=== PATIENT | female | born 1940 | race Caucasian/White ===

== ENCOUNTER → 2016-08-25 | Outpatient (CLI) | payer MEDICARE ==
[~2016-08-25] MED LIST: ACET-1770 PO; ASPI-557 PO; CALC600T12 PO; CARV3.123 PO; CHOL100055 PO; DENO60DI IM; GLUC100015 PO; MULT-806 PO; NITR0.4T39 PO
== END ==
LOC: WC.BC 12:47
DX: Z12.31 Encounter for screening mammogram for malignant neoplasm of breast (principal); N64.59 Other signs and symptoms in breast; C50.911 Malignant neoplasm of unspecified site of right female breast; Z90.11 Acquired absence of right breast and nipple
CPT/HCPCS: 77063; G0202

== ENCOUNTER 2017-05-26 17:39 | Inpatient (IN) ==
--- OUTSIDE RECORDS SUMMARY | 2017-05-26 18:47 | External Medical Summary | Referral Summary ---
:1939 Author Organization [facility] Address [address] [place] [address] [place] [phone] Care Team Providers Name Role Phone Ganesh Arrieta Primary Care Physician Encounter VC Date(s): 06/09/15 - 06/09/15 [facility] [address] [place] [address] [place] [phone] [place] Discharge Disposition: 01-Home or Self Care Attending Physician: Ganesh Arrieta MD Admitting Physician: Ganesh Arrieta MD Vital Signs Most recent to oldest [Reference Range]: 1 Temperature Tympanic [36.6-38.1 degC] 36.0 degC *LOW* (06/09/15 2:33 PM) Peripheral Pulse Rate [60-100 bpm] 76 bpm (06/09/15 2:33 PM) Blood Pressure [90-140/60-90 mmHg] 118/76 mmHg (06/09/15 2:33 PM) Problem List Condition Effective Dates Status Health Status Informant Dyslipidemia(Confirmed) Active Eczema(Confirmed) Active History of adenomatous polyp of Active colon(Confirmed) Dyspepsia,lactose Active intolerance(Confirmed) Head trauma(Confirmed) < 05/02/14 Resolved Breast cancer-rt(Confirmed) 04/24/95 - 05/02/14 Resolved Osteoarthritis(Confirmed) Active Rosacea(Confirmed) Active Allergies, Adverse Reactions, Alerts No Known Medication Allergies Medications Aspirin Enteric Coated 81 mg, Oral, q2Days, 0 Refill(s) Start Date: 05/07/14 Status: OrderedCalcium 600+D 1 tabs, Oral, Daily, 0 Refill(s) Start Date: 05/07/14 Status: OrderedCoreg 3.125 mg, Oral, BID, 0 Refill(s) Start Date: 01/20/15 Status: Ordereddenosumab 60 mg/mL subcutaneous solution 60 mg, SubCutaneous, q6mo, # 1 mL, 0 Refill(s), other reason (Rx) Start Date: 06/11/14 Stop Date: 06/22/15 Status: Orderedglucosamine 500 mg, Oral, Daily, 0 Refill(s) Start Date: 05/07/14 Status: Orderedmultivitamin See Instructions, 1 tab po Daily, 0 Refill(s) Start Date: 05/02/14 Status: OrderedNitrostat 0.4 mg sublingual tablet 0.4 mg 1 tabs, SubLingual, q5min, as needed for chest pain, # 100 tabs, 0 Refill (s) Start Date: 01/20/15 Status: Orderedtriamcinolone 0.1% topical cream 1 shaneka, Topical, TID, # 60 g, 0 Refill(s), Pharmacy: [id number] Start Date: 05/07/14 Status: OrderedVitamin D3 1,000 Intl_Units, Daily, 0 Refill(s) Start Date: 05/02/14 Status: Ordered Results No data available for this section Immunizations Vaccine Date Refusal Reason pneumococcal 23-polyvalent vaccine 09/30/08 zoster vaccine live 04/24/07 Procedures Procedure Date Related Diagnosis Body Site Colonoscopy normal1 07/17/14 Colonoscopy2 2014 Cystoscopy 2013 Knee replacement-left 05/16/11 Mammogram3 06/17/08 Benign Colon polyp4 08/07/07 Radical mastectomy-rt5 1966 Appendectomy section History of right oophorectomy 1Diverticula, History of adenomatous polyps, no polyps found in current colonoscopy, repeat in 5 bbusp5LaIvania Loera, polyp showing qrvflggoc3Wd. Diagnostic unitateral-DX: personal Hx of breast ca- Mastectomy- 1 year screening [id number]., Dr. LoeraUpcykwfb1tdrub Social History Social History Type Response Smoking Status Never smoker Assessment and Plan Extracted from: Title: 3rd Prolia inj Author: Kate Mcginnis RN Date: 06/09/15 Pt here for 3rd Prolia injection - denies any SE from previous ones. Prior auth # karol Elias at [facility] is [id number] effective until 2016. Lot # [id number] Exp 11/2017.
--- OUTSIDE RECORDS SUMMARY | 2017-05-26 18:47 | External Medical Summary | Referral Summary ---
:1939 Author Organization [facility] Address [address] [place] [address] [place] [phone] Care Team Providers Name Role Phone Ganesh Arrieta Primary Care Physician Encounter VC Date(s): 12/10/14 - 12/10/14 [facility] [address] [place] [address] [place] [phone] [place] Discharge Diagnosis: SENILE OSTEOPOROSIS Discharge Disposition: 01-Home or Self Care Attending Physician: Buzz Mccray JR, MD, FAAFP Admitting Physician: Buzz Mccray JR, MD, FAAFP Vital Signs Most recent to oldest [Reference Range]: 1 Temperature Tympanic [36.6-38.1 degC] 36.9 degC (12/10/14 9:08 AM) Peripheral Pulse Rate [60-100 bpm] 64 bpm (12/10/14 9:08 AM) Respiratory Rate [14-20 br/min] 16 br/min (12/10/14 9:08 AM) Blood Pressure [90-140/60-90 mmHg] 114/64 mmHg (12/10/14 9:08 AM) Problem List Condition Effective Dates Status Health [...] TID, # 60 g, 0 Refill(s), Pharmacy: [id number] Start Date: 05/07/14 Status: OrderedVitamin D3 1,000 [...] found in current colonoscopy, repeat in 5 touxa2MaIvania Loera, polyp showing knlxzknas1Yu. Diagnostic unitateral-DX: personal Hx of breast ca- Mastectomy- 1 year screening jbzocykzekj8tmcqre.Dr. Loera5right Social History Social History Type Response Smoking Status Never smoker Assessment and Plan No data available for this section
--- OUTSIDE RECORDS SUMMARY | 2017-05-26 18:47 | External Medical Summary | Referral Summary ---
:1939 Author Organization [facility] Address [address] [place] [address] [place] [phone] Care Team Providers Name Role Phone Ganesh Arrieta Primary Care Physician Encounter VC Date(s): 12/10/14 - 12/10/14 [facility] [address] [place] [address] [place] [phone] [place] Discharge Diagnosis: SENILE [...] TID, # 60 g, 0 Refill(s), Pharmacy: [id number] Start Date: 05/07/14 Status: OrderedVitamin D3 1,000 [...] found in current colonoscopy, repeat in 5 czcrs1JxIvania Loera, polyp showing ylxkozbps9Us. Diagnostic unitateral-DX: personal Hx of breast ca- Mastectomy- 1 year screening gwrjlyxppjz8lbvrga.Dr. Loera5right Social History Social History Type Response Smoking Status Never smoker Assessment and Plan No data available for this section
--- OUTSIDE RECORDS SUMMARY | 2017-05-26 18:47 | External Medical Summary | Referral Summary ---
:1939 Author Organization [facility] [place] [phone] Care Team Providers Name Role Phone Ganesh Arrieta Primary Care Physician Encounter VC Date(s): 01/20/15 - 01/20/15 [facility] [place] [phone] [place] Discharge Diagnosis: Strain of left trapezius muscle Discharge Diagnosis: Effort angina Discharge Diagnosis: Osteoarthritis Discharge Disposition: 01-Home or Self Care Attending Physician: Esthela George APRN Admitting Physician: Esthela George APRN Vital Signs Most recent to oldest [Reference Range]: 1 Temperature Tympanic [36.6-38.1 degC] 35.7 degC *LOW* (01/20/15 8:19 AM) Peripheral Pulse Rate [60-100 bpm] 72 bpm (01/20/15 8:19 AM) Blood Pressure [90-140/60-90 mmHg] 102/64 mmHg (01/20/15 8:19 AM) Problem List Condition Effective Dates Status [...] TID, # 60 g, 0 Refill(s), Pharmacy: [facility] Start Date: 05/07/14 Status: OrderedVitamin D3 1,000 [...] found in current colonoscopy, repeat in 5 vhpbz6RrIvania Loera, polyp showing vvnqagoar7Me. Diagnostic unitateral-DX: personal Hx of breast ca- Mastectomy- 1 year screening ftkyhxpgoke7arnmbk., Dr. LoeraNutlkvbm1iiavv Social History Social History Type Response Smoking Status Never smoker Assessment and Plan Extracted from: Title: Office Visit Note-Hosp f/u Author: Esthela George RAIL DIRECTOR Date: angina Assessment/Plan 1.Effort angina Refer to Dr. Da Silva per pt request. Avoid inc physical activity. If has recurrent angina takie nitroglycerin and call EMS. Discussed current lipid panel from [facility]. LDL is 112. Discussed current recommendations regarding cardiovascular disease and treatment goals. Discussed starting a statin. Mimi nt would like to wait till she sees cardiology as she wants to avoid medications as much as normal. Is concerned about over medicated. Continue baby aspirin 3-4 times a week. PCP changed to Dr. Arrieta. Ordered: Office Visit Level 4 Est 56577 2.Strain of left trapezius muscle Discussed her neck and shoulder pain. I suspect is more muscular in nature. Possibly talked about adhesive capsulitisI think that is less likelythereal ly good range of motion of the shoulder today. [facility]. Ordered: Office Visit Level 4 Est 86894 Osteoarthritis Tylenol as needed. This is the bestmedication for her pain, avoid nonsteroidals with this time. Ordered: Office Visit Level 4 Est [id number]
--- OUTSIDE RECORDS SUMMARY | 2017-05-26 18:47 | External Medical Summary | Referral Summary ---
:1939 Author Organization [facility] Address [address] [place] [address] [place] [phone] Care Team Providers Name Role Phone Ganesh Arrieta Primary Care Physician Encounter VC Date(s): 12/17/15 - 12/17/15 [facility] [address] [place] [address] [place] [phone] [place] Discharge Disposition: 01-Home or Self Care Attending Physician: Ganesh Arrieta MD Admitting Physician: Ganesh Arrieta MD Vital Signs Most recent to oldest [Reference Range]: 1 Temperature Tympanic [36.6-38.1 degC] 36.2 degC *LOW* (12/17/15 8:59 AM) Peripheral Pulse Rate [60-100 bpm] 52 bpm *LOW* (12/17/15 8:59 AM) Blood Pressure [90-140/60-90 mmHg] 102/70 mmHg (12/17/15 8:59 AM) Problem List Condition Effective Dates Status [...] Refill(s) Start Date: 05/07/14 Status: OrderedCoreg 3.125 mg oral tablet 3.125 mg, Oral, BID, # 60 tabs, 3 Refill(s), Pharmacy: [facility], 3.125 mg Oral BID Start Date: 08/20/15 Status: Ordereddenosumab 60 mg/mL subcutaneous solution 60 [...] TID, # 60 g, 0 Refill(s), Pharmacy: [facility] Start Date: 05/07/14 Status: OrderedVitamin D3 1,000 [...] found in current colonoscopy, repeat in 5 yehxo1DbIvania Loera, polyp showing qfteohlle1Mf. Diagnostic unitateral-DX: personal Hx of breast ca- Mastectomy- 1 year screening ghflinmzibs3uhqveu., Dr. LoeraJhgbbqoi3zpwza Social History Social History Type Response Smoking Status Never smoker Assessment and Plan Extracted from: Title: 4th Prolia Author: Evelyne Chase RN Date: 12/17/15 Pt here for 4th Prolia injection. 12/16/2015 Calcium 9.6, estimated creatinine clearance 50. No adverse effects reported by patient. Prolia 60 mg given sc left upper thigh. Lot # [id number], exp 03/2018. Currently on calcium and vitamin D, instructed to continue that. Will schedule bone density test early May, will give Prolia depending on results.
--- OUTSIDE RECORDS SUMMARY | 2017-05-26 18:47 | External Medical Summary | Referral Summary ---
:1939 Author Organization [facility] Address [address] [place] [address] [place] [phone] Care Team Providers Name Role Phone Ganesh Arrieta Primary Care Physician Encounter VC Date(s): 07/22/15 - 07/22/15 [facility] [place] [phone] [place] Discharge Diagnosis: Acute UTI Discharge Disposition: 01-Home or Self Care Attending Physician: Esthela George APRN Admitting Physician: Esthela George APRN Vital Signs Most recent to oldest [Reference Range]: 1 Temperature Tympanic [36.6-38.1 degC] 36.7 degC (07/22/15 10:48 AM) Peripheral Pulse Rate [60-100 bpm] 64 bpm (07/22/15 10:48 AM) Respiratory Rate [14-20 br/min] 18 br/min (07/22/15 10:48 AM) Blood Pressure [90-140/60-90 mmHg] 122/66 mmHg (07/22/15 10:48 AM) Problem List Condition Effective Dates Status [...] Daily, 0 Refill(s) Start Date: 05/07/14 Status: OrderedCipro 500 mg oral tablet 500 mg 1 tabs, Oral, q12hr, X 7 days, # 14 tabs, 0 Refill(s), Pharmacy: [facility], 1 tabs Oral q12hr,x7 days Start Date: 07/22/15 Stop Date: 07/29/15 Status: OrderedCoreg 3.125 mg, Oral, BID, 0 [...] TID, # 60 g, 0 Refill(s), Pharmacy: [facility]28 Start Date: 05/07/14 Status: OrderedVitamin D3 1,000 Intl_Units, Daily, 0 Refill(s) Start Date: 05/02/14 Status: Ordered Results Urinalysis Most recent to oldest [Reference Range]: 1 UA Color Yellow (07/22/15 10:26 AM) UA Appear Cloudy *ABN* (07/22/15 10:26 AM) UA pH [5.0-8.0] 6.0 (07/22/15 10:26 AM) UA Leuk Est [Negative] Pos 1+ *ABN* (07/22/15 10:26 AM) UA Nitrite [Negative] Negative (07/22/15 10:26 AM) UA Protein [Negative] Negative (07/22/15 10:26 AM) UA Glucose [Negative] Negative (07/22/15 10:26 AM) UA Ketones [Negative] Negative (3/30/16 10:26 AM) UA Urobilinogen [<=1.0 mg/dL] 0.2 mg/dL (07/22/15 10:26 AM) UA Bili [Negative] Negative (07/22/15 10:26 AM) UA Blood [Negative] Pos 2+ *ABN* (07/22/15 10:26 AM) UA Spec Grav [1.003-1.030] 1.015 (07/22/15 10:26 AM) Type Clean Catch (07/22/15 10:26 AM) UA WBC [0-4 /HPF] >50 /HPF 1 *ABN* (07/22/15 10:26 AM) UA RBC [0-2] 10-20 *ABN* (07/22/15 10:26 AM) Epithelial Cells 2-5 (07/22/15 10:26 AM) UA Bacteria Occasional *ABN* (07/22/15 10:26 AM) 1Result Comment: WBC clumps noted Immunizations Vaccine Date Refusal Reason pneumococcal 23-polyvalent vaccine 09/30/08 zoster vaccine live 04/24/07 Procedures Procedure Date Related Diagnosis Body Site Colonoscopy normal1 07/17/14 Colonoscopy2 2014 Cystoscopy 2013 Knee replacement-left 05/16/11 Mammogram3 06/17/08 Benign Colon polyp4 08/07/07 Radical mastectomy-rt5 1966 Appendectomy section History of right oophorectomy 1Diverticula, History of adenomatous polyps, no polyps found in current colonoscopy, repeat in 5 ytqbi5OaIvania Loera, polyp showing jnlkrwwzd2Vn. Diagnostic unitateral-DX: personal Hx of breast ca- Mastectomy- 1 year screening plxxhlmdtnk8venjgs., Dr. LoeraExooanaq4zeetx Social History Social History Type Response Smoking Status Never smoker Assessment and Plan Extracted from: Title: Office Visit Note-UTI Author: Esthela George FOOD AND BEVERAGE MANAGER Date: 07/22/15 Assessment/Plan 1.Acute UTI Discussed pathophysiology and expected results with treatment. Take antibiotic till complete. Side effects discussed. Push fluids. OTC AZO per package instructions for discomfort. UA reviewed. Await culture. We'll notify patient if antibiotic is not sensitive and different antibiotic is needed. Call if sx not improving after 48 hr of antibiotic. Ordered: Office Visit Level 3 Est [id number] Orders: ciprofloxacin, 500 mg 1 tabs, Oral, q12hr, X 7 days, # 14 tabs, 0 Refill(s), Pharmacy: [facility], 1 tabs Oral q12hr,x7 days
--- OUTSIDE RECORDS SUMMARY | 2017-05-26 18:47 | External Medical Summary | Referral Summary ---
:1939 Author Organization [facility] Address [address] [place] [address] [place] [phone] Care Team Providers Name Role Phone Ganesh Arrieta Primary Care Physician Encounter VC Date(s): 12/10/14 - 12/10/14 [facility] [address] [place] [address] [place] [phone] [place] Discharge Diagnosis: SENILE [...] TID, # 60 g, 0 Refill(s), Pharmacy: [facility] Start Date: 05/07/14 Status: OrderedVitamin D3 1,000 [...] found in current colonoscopy, repeat in 5 xkrqd2YaIvania Loera, polyp showing yhuwhaovr7Fw. Diagnostic unitateral-DX: personal Hx of breast ca- Mastectomy- 1 year screening mvdjyvanhiv7qtdvkt.Dr. Loera5right Social History Social History Type Response Smoking Status Never smoker Assessment and Plan No data available for this section
--- OUTSIDE RECORDS SUMMARY | 2017-05-26 18:47 | External Medical Summary | Referral Summary ---
:1939 Author Organization [facility] Address [address] [place] [address] [place] [phone] Care Team Providers Name Role Phone Ganesh Arrieta Primary Care Physician Encounter VC Date(s): 12/10/14 - 12/10/14 [facility] [address] [place] [address] [place] [phone] [place] Discharge Diagnosis: SENILE [...] # 60 g, 0 Refill(s), Pharmacy: [facility] Start Date: 05/07/14 Status: OrderedVitamin D3 1,000 [...] found in current colonoscopy, repeat in 5 weglj5HbIvania Loera, polyp showing hcixcpjer4Sw. Diagnostic unitateral-DX: personal Hx of breast ca- Mastectomy- 1 year screening ixhxpjzoaym4wkctrv.Dr. Loera5right Social History Social History Type Response Smoking Status Never smoker Assessment and Plan No data available for this section
--- OUTSIDE RECORDS SUMMARY | 2017-05-26 18:47 | External Medical Summary | Referral Summary ---
:1939 Author Organization [facility] Address [address] [place] [address] [place] [phone] Care Team Providers Name Role Phone Ganesh Arrieta Primary Care Physician Encounter VC Date(s): 12/10/14 - 12/10/14 [facility] [address] [place] [address] [place] [phone] [place] Discharge Diagnosis: SENILE [...] TID, # 60 g, 0 Refill(s), Pharmacy: [facility] Start Date: 05/07/14 Status: OrderedVitamin D3 1,000 [...] found in current colonoscopy, repeat in 5 tnqog8UyIvania Loera, polyp showing tjtuhtiky8Ld. Diagnostic unitateral-DX: personal Hx of breast ca- Mastectomy- 1 year screening uloobhahkqp9hkxjuj.Dr. Loera5right Social History Social History Type Response Smoking Status Never smoker Assessment and Plan No data available for this section
--- OUTSIDE RECORDS SUMMARY | 2017-05-26 18:48 | External Medical Summary | Referral Summary ---
:1939 Author Organization [facility] [place] [phone] Care Team Providers Name Role Phone Ganesh Arrieta Primary Care Physician Encounter VC Date(s): 01/20/15 - 01/20/15 [facility] [place] [phone] [place] Discharge Diagnosis: [...] TID, # 60 g, 0 Refill(s), Pharmacy: [facility] Start Date: 05/07/14 Status: OrderedVitamin D3 1,000 [...] found in current colonoscopy, repeat in 5 enwwk5XrIvania Loera, polyp showing qmzpofphw6Uc. Diagnostic unitateral-DX: personal Hx of breast ca- Mastectomy- 1 year screening ffhrmtfgkqx7lvxwxj., Dr. LoeraYdbtfynl7lmnit Social History Social History Type Response Smoking Status Never smoker Assessment and Plan Extracted from: Title: Office Visit Note-Hosp f/u Author: Esthela George BALING MACHINE OPERATOR Date: angina Assessment/Plan 1.Effort angina Refer to Dr. Da Silva per pt request. Avoid inc physical activity. If has recurrent angina takie nitroglycerin and call EMS. Discussed current lipid panel from [facility]. LDL is 112. Discussed current recommendations regarding cardiovascular disease and treatment goals. Discussed starting a statin. Mimi nt would like to wait till she sees cardiology as she wants to avoid medications as much as normal. Is concerned about over medicated. Continue baby aspirin 3-4 times a week. PCP changed to Dr. Arrieta. Ordered: Office Visit Level 4 Est 86417 2.Strain of left trapezius muscle Discussed her neck and shoulder pain. I suspect is more muscular in nature. Possibly talked about adhesive capsulitisI think that is less likelythereal ly good range of motion of the shoulder today. [facility]. Ordered: Office Visit Level 4 Est 13023 Osteoarthritis Tylenol as needed. This is the bestmedication for her pain, avoid nonsteroidals with this time. Ordered: Office Visit Level 4 Est 11335
--- OUTSIDE RECORDS SUMMARY | 2017-05-26 18:48 | External Medical Summary | Continuity of Care Document ---
:[address] [facility] [place] [facility] [place] Allergies Active Description Code Type Severity Reaction Onset Reported/ Identified Relationship Clinical to Patient Status Yes No Known No Drug Unknown N/A 04/23/2015 Allergies Known Aller Aller gy gies Medications There is no data. Problems There is no data. Procedures There is no data. Results Test Result Range BLOOD UREA NITROGEN - 04/23/15 08:45 BLOOD UREA NITROGEN 13 mg/dL 7-20 CREATININE - 04/23/15 08:45 EST GFR (MDRD) > 60 mL/min > 59 CREATININE 0.8 mg/dL 0.6-1.0 Encounters ACCT Visit Discharge Status Pt. Type Provider Facility Loc./Unit Complaint No. Date/Time [id number] 04/23/2015 04/23/2015 DIS Outpatient Marilu BANUELOS [id number] 08:04:00 10:23:00 , [facility]
--- OUTSIDE RECORDS SUMMARY | 2017-05-26 18:48 | External Medical Summary | Referral Summary ---
:1939 Author Organization [facility] Address [address] [place] [address] [place] [phone] Care Team Providers Name Role Phone Ganesh Arrieta Primary Care Physician Encounter VC Date(s): 12/10/14 - 12/10/14 [facility] [address] [place] [address] [place] [phone] [place] Discharge Diagnosis: SENILE [...] TID, # 60 g, 0 Refill(s), Pharmacy: [facility] Start Date: 05/07/14 Status: OrderedVitamin D3 1,000 [...] found in current colonoscopy, repeat in 5 nsafx8NpIvania Loera, polyp showing vksyhmpxj2Ts. Diagnostic unitateral-DX: personal Hx of breast ca- Mastectomy- 1 year screening dpkmaadmlex6msbqyj.Dr. Loera5right Social History Social History Type Response Smoking Status Never smoker Assessment and Plan No data available for this section
--- NOTE | 2017-05-26 20:09 | History & Physical Report ---
History of Present Illness Date: 05/26/17 Chief complaint: weakness HPI: 77 yo who had a black stool Monday (05/24) afternoon and again morning. She saw Dr. Arrieta in the office. Her Hgb was 12.3. The plan was to recheck CBC today and pursue an outpatient workup as long as bleeding didn't get worse. She had another black stool today. She says she was soa and felt weak yesterday more than today. Today's Hgb was 9.8, and a direct admit was arranged. Patient recalls 4-5 days of heartburn about 2 weeks ago. She says she does not typically have heartburn. She takes 81 mg of ASA daily and does not take NSAIDs. She has had some lightheadedness in the past 2 days. Review of Systems Review of systems: In addition to above, 10-point ROS is negative except for below: - Cardiovascular Cardiovascular: Present: palpitations Past Medical History Patient Stated Medical History Angina Yes Blood Transfusions Yes: 2 units with TKA dyslipidemia eczema dyspepsia osteoarthritis breast cancer- right rosacea Surgical History: colonoscopy, cystoscopy, knee replacement, appendectomy, radical mastectomy, , oopherectomy Family History: father: COPD, HTN mother: HTN, stroke sibling: sarcoma Family History Updates: ather: COPD, HTN. mother: HTN, stroke. sibling: sarcoma - Social History Smoking status: Never smoker Medications Home Medications Medication Instructions Recorded Confirmed Type Multivitamins (Multivitamin) 1 tab PO DAILY #0 05/13/11 05/26/17 History Denosumab [Prolia] 1 syringe IM 6 MONTHS #0 07/17/14 05/26/17 History Acetaminophen/Diphenhydramine 1 tab PO HS PRN #0 03/05/16 05/26/17 History [Acetaminophen Pm Caplet] Aspirin [Aspir 81] 81 mg PO DAILY #0 03/05/16 05/26/17 History Calcium Carbonate [Calcium] 600 mg PO BID #0 03/05/16 05/26/17 History Carvedilol 3.125 mg PO BIDWM #0 03/05/16 05/26/17 History Cholecalciferol (Vitamin D3) 1,000 unit PO DAILY #0 03/05/16 05/26/17 History (Vitamin D) Glucosamine Sulfate Dipot Chlr 1,000 mg PO BID #0 03/05/16 05/26/17 History [Glucosamine] Nitroglycerin 0.4 mg PO Q5MIN PRN #0 03/05/16 05/26/17 History Atorvastatin [Lipitor] 1 tab PO HS 05/26/17 05/26/17 History Allergies Allergy/AdvReac Type Severity Reaction Status Date / Time alendronate sodium AdvReac Intermediate Lumps on Verified 05/26/17 20:05 elbows, knees, heels Exam Vital Signs: Temperature 97.1 F 05/26/17 19:04 Pulse Rate 91 05/26/17 19:04 Respiratory Rate 18 05/26/17 19:04 Blood Pressure 137/84 05/26/17 19:04 Pulse Oximetry 96 05/26/17 19:04 Height/Weight/BMI: Height 5 ft 2 in Weight 52 kg Body Mass Index 20.9 - Constitutional Present: no acute distress - Routine HEENT Exam Head: Present: normocephalic, atraumatic Eye: Present: EOMI, PERRL ENT: Present: mucous membranes moist - Routine Neck Exam Present: supple - Routine Respiratory Exam Present: CTA bilaterally - Routine Cardiovascular Exam Present: RRR, no murmur - Routine Abdominal Exam Present: soft, normoactive bowel sounds, non distended, non tender - Routine Extremities Exam Present: no edema - Routine Skin Exam Present: intact - Routine Neurological Exam Present: alert, oriented X3, CN II-XII intact, moving all extremities - Routine Psychiatric Exam Present: normal affect, cooperative Assessment and Plan Assessment and Plan: Assessment UGI bleed acute blood loss anemia HTN dyslipidemia angina Plan Inpatient admission. Protonix drip started. Monitor hgb. With h/o angina, will transfuse [address] Davis consulted. EGD planned for AM. Hold ASA. NPO after MN. SCDs for DVT ppx DVT Prophylaxis: SCD's GI Prophylaxis: Protonix Resuscitation Status: Full Code - Physician Narrative Narrative: Date: 05/26/17 Time: 1956 Hospital Course Summary Disclaimer: The visit summary below is not to be considered part of the above Progress Note. Hospital Course: UGI bleed acute blood loss anemia HTN dyslipidemia angina Plan Inpatient admission. Protonix drip started. Monitor hgb. With h/o angina, will transfuse [address] Davis consulted. EGD planned for AM. Hold ASA. NPO after MN. SCDs for DVT ppx
[2017-05-26] MEDS ORDERED: NS FLUSH BAG 500ml IV PRN (20:25)
[2017-05-26] MEDS: PANTOPRAZOLE IV 80 MG in NS 250ml 250 ML IV SCH (23:54)
[2017-05-27] MEDS: PANTOPRAZOLE IV 80 MG in NS 250ml 250 ML IV SCH ×4 (08:22→21:18)
--- NOTE | 2017-05-27 09:25 | Anesthesia Preoperative Report ---
Anesthesia Preoperative Record - Date and Time Date: 05/27/17 Preoperative Diagnosis: GI Bleed Proposed Procedure: EGD NPO Since Date: 05/27/17 NPO Since Time: 00:00 Allergies/Adverse Reactions: Allergies Allergy/AdvReac Type Severity Reaction Status Date / Time alendronate sodium AdvReac Intermediate Lumps on Verified 05/26/17 20:05 elbows, knees, heels - Vital Signs Vital Signs: Temperature 98 F 05/27/17 07:56 Pulse Rate 64 05/27/17 07:56 Respiratory Rate 14 05/27/17 07:56 Blood Pressure 117/71 05/27/17 07:56 Pulse Oximetry 96 05/27/17 07:56 Height and Weight: Height 5 ft 2 in Weight 52.9 kg Body Mass Index 20.9 - Medications Inpatient Medications: Current Medications Pantoprazole Sodium 80 mg/ (Sodium Chloride) 250 mls @ 25 mls/hr IV .Q10H ABEBA PRN Reason: 8 MG/HR Last Admin: 05/27/17 08:22 Dose: Not Given Sodium Chloride (Normal Saline) 500 ml IV PRN PRN Last Admin: 05/26/17 22:20 Dose: 500 ml Home Medications: Home Medications Medication Instructions Recorded Confirmed Type Multivitamins (Multivitamin) 1 tab PO DAILY #0 05/13/11 05/26/17 History Denosumab [Prolia] 1 syringe IM 6 MONTHS #0 07/17/14 05/26/17 History Acetaminophen/Diphenhydramine 1 tab PO HS PRN #0 03/05/16 05/26/17 History [Acetaminophen Pm Caplet] Aspirin [Aspir 81] 81 mg PO DAILY #0 03/05/16 05/26/17 History Calcium Carbonate [Calcium] 600 mg PO BID #0 03/05/16 05/26/17 History Carvedilol 3.125 mg PO BIDWM #0 03/05/16 05/26/17 History Cholecalciferol (Vitamin D3) 1,000 unit PO DAILY #0 03/05/16 05/26/17 History (Vitamin D) Glucosamine Sulfate Dipot Chlr 1,000 mg PO BID #0 03/05/16 05/26/17 History [Glucosamine] Nitroglycerin 0.4 mg PO Q5MIN PRN #0 03/05/16 05/26/17 History Atorvastatin [Lipitor] 1 tab PO HS 05/26/17 05/26/17 History Is Patient on Beta Kirk?: Yes Beta Kirk Last Dose Date/Time: 05/26/17 0800 - Medical History Respiratory: DENIES: Asthma, Bronchitis, Chronic Obstructive Pulmonary Disease (COPD), Dyspnea, Orthopnea, Pulmonary Embolism, Pneumonia, Upper Respiratory Infection, Pulmonary Edema, Sleep Apnea, Tuberculosis, Other Cardiovascular: Reports: Angina (2015 negative workup. none since being on coreg ), Valvular Heart Disease ("mildly leaky valve" not sure which one) Gastrointestional: Reports: Gastrointestinal Bleeding (possible now) Neuro/Musculoskeletal: Denies: HX.MS.OSAR, Back Problems, Cerebrovascular Accident, Depression, Headaches, Loss of Consciousness, Muscle Weakness, Neuromuscular Disorder, Paralysis, Paresthesia, Syncope, Seizures, Other Renal/Endocrine: DENIES: Diabetes Mellitus Type 1, Diabetes Mellitus Type 2, Renal Failure, Dialysis, Thyroid Disease, Weight Loss, Weight Gain, Other Other History: Reports: Blood Transfusions (2 units with TKA), Cancer (breast cancer) - Surgical History GI Surgery/Treatments: Reports: Appendectomy Surgery/Treatment: REPORT: Other (scope many yrs ago) Musculoskeletal Surgery/Tx: Reports: Total Knee Replacement Reproductive Surgery/Treatment: Reports: Section, Mastectomy (right side 52 yrs ago) Anesthesia Reactions: Nausea and Vomiting (remote hx) Hx Family Anesthesia Reaction: No History of Motion Sickness: No - Social History Smoking Status: Never smoker Substance Use Type: does not use Alcohol Intake Frequency: does not drink - Pertinent Findings Laboratory: CBC and BMP 05/27/17 02:17 EKG: Sinus Rhythm - Physical Exam Respiratory Exam: Present: lungs clear, bilateral breath sounds equal Cardiovascular Exam: Present: regular rate and rhythm, no murmur - Airway Assessment Mallampati Score: II TMD: 3 Fingerbreadths Neck Extension: good Teeth: patial upper dentures, partial lower dentures Overall Assessment: no airway concerns - ASA ASA Score: 2 - Plan Anesthesia: General TIVA - Discussion Discussion: Discussed risks/options/alternatives of anesthesia and questions answered. Patient consents. Nursing pain assessment noted. Present for Discussion: other (none) Attestation Statement: Prior to the delivery of any anesthetic medication, I examined the patient, developed the plan, obtained the patient's consent and discussed the risk and benefits of the procedure with the patient/guardian. - Additional Information Seen by Anesthesia: Yes
[2017-05-27] MEDS ORDERED: PROPOFOL 500 MG/50 ML VIAL ONE (09:32)
[2017-05-27] MEDS ORDERED: LIDOCAINE VISCOUS 2% ORAL LIQUID 15ml ONE (09:32)
[2017-05-27] MEDS: LR 1,000 ML IV SCH ×2 (09:38→11:23)
[2017-05-27] MEDS ORDERED: LIDOCAINE VISCOUS 2% ORAL LIQUID 15ml PO ONE (09:47)
--- NOTE | 2017-05-27 10:00 | General Surgery Procedure Note ---
Date of Procedure: 05/27/17 Surgeon: Ryan Postoperative Diagnosis: Gastric ulcer Procedure: EGD with biopsies Estimated Blood Loss: See Anesthesia Record.
--- NOTE | 2017-05-27 10:27 | Anesthesia Postoperative Note ---
- Date and Time Date: 05/27/17 Time: 10:27 - Status Patient Participated in Evaluation: Patient Participated in Person Vital Signs: Temperature 97.2 F 05/27/17 10:00 Pulse Rate 65 05/27/17 10:20 Respiratory Rate 14 05/27/17 10:20 Blood Pressure 97/55 05/27/17 10:20 Pulse Oximetry 99 05/27/17 10:20 Respiratory Function: Airway Patent Cardiovascular Function: Regular Pulse EKG: Sinus Rhythm Mental Status: Alert and Oriented Pain Intensity: 0 Hydration: IV Infusing Complications During Recover: None Apparent - Follow-Up Instructions Instructions: Per Surgeon
--- NOTE | 2017-05-27 11:17 | Consultation ---
DATE OF CONSULTATION 05/27/2017 HISTORY OF PRESENT ILLNESS This patient is 77 years old. This patient has had no prior esophagogastroduodenoscopy procedure. She did have a previous total colonoscopy procedure performed on 08/07/2007 and was found to have moderate sigmoid colon diverticulosis at that time. The patient also underwent colonoscopy on 07/17/2014 at [facility] and was found to have moderate sigmoid colon diverticulosis at that time. There were no angiodysplasia lesions, polyps or tumors present at the colon at the colonoscopy procedure performed on 07/17/2014. The patient has had no previous gastrointestinal tract bleeding episode prior to the current one. The patient does take aspirin. She does not take any other anticoagulants. The patient has had no recent abdominal pain. The patient did have a black tarry stool on the afternoon of 05/24/2017. The patient then had another black stool on the morning of 05/25/2017. The patient did go in and see Dr. Ganesh Arrieta at the office on the morning of 2017. CBC was performed at this time. Hemoglobin was 12.3 at this time. A plan was initiated at that time to begin outpatient evaluation of the melena. A plan was also made to recheck a CBC on 05/26/2017. The patient did have another CBC performed at noon on 05/26/2017. Hemoglobin was 9.8 at that time. The patient did continue to have some additional black stools on 05/26/2017. The patient has had no hematochezia. With the drop in hemoglobin to 9.8 at noon on 05/26/2017, a decision was made to admit the patient to [facility] for further evaluation and treatment. The patient was admitted to [facility] on the evening of 05/26/2017. The patient has been transfused with 1 unit of packed red blood cells following admission to the hospital. Hemoglobin was rechecked at 0217 hours on 05/27/2017 and hemoglobin was 11 at that time. Vital signs have all been stable since the patient was admitted to [facility]. PAST MEDICAL HISTORY PREVIOUS OPERATIONS 1. section in 8 at [facility] at [place], [place]. 2. Repeat section in 1961 at [facility] at [place], [place]. 3. Appendectomy in 1988 at [facility] at [place], [place]. 4. Total colonoscopy on 08/07/[address] Loera at [facility] at [place], [place]. A colonoscopy was performed because the patient did undergo a polypectomy one year earlier with removal of a polyp in the left colon at that time. The patient did not have any further polyps found at the colonoscopy procedure performed on 08/07/2007. The patient did have moderate sigmoid colon diverticulosis at this time. 5. Colonoscopy on 07/17/[address] Jeffrey at [facility] at [place], [place]. Postoperative diagnoses were personal history of adenomatous colon polyps and sigmoid colon diverticulosis. The patient did have moderate sigmoid colon diverticulosis found at this procedure. There were no angiodysplasia lesions, polyps or tumors found at this procedure. PHYSICAL EXAMINATION VITAL SIGNS: Blood pressure is 98 degrees Fahrenheit oral. Pulse is 64. Respiratory rate is 14. Blood pressure is 117/71. Oxygen saturation is 96% on room air. Height is 1.57 meters. Weight is 52.9 kg. BMI is 12.3 kg/m2. ABDOMEN: The patient has an old midline vertically oriented lower abdominal incision scar. The patient has an old right lower quadrant paramedian abdominal incision scar. The abdomen is soft and nontender. There are no abdominal masses. RECTUM: There is quite a bit of hard stool in the rectal vault. The stool has a black color. There are no rectal masses. There is no bright red blood present at digital rectal examination. LABORATORY DATA The patient did have a hemoglobin of 11 at 0217 hours on 05/27/2017. IMPRESSION 1. Recent melena. 2. Anemia due to acute gastrointestinal tract blood loss. 3. Moderate sigmoid colon diverticulosis. PATIENT EDUCATION I did talk with the patient about undergoing esophagogastroduodenoscopy and possible colonoscopy to look for a source for the gastrointestinal tract bleeding. The nature of an esophagogastroduodenoscopy procedure was explained to the patient [id number]. I did tell the patient that we might do biopsies at this procedure. I did tell the patient that we might attempt to control an upper gastrointestinal tract bleeding point with coagulation or application of endoscopic Hemoclips at the time of this procedure. Potential risks and complications of the procedure were also discussed with the patient. I did tell the patient that if findings are negative at esophagogastroduodenoscopy that we would probably want to have the patient undergo a colonoscopy tomorrow. Questions were solicited from the patient. All of her questions were answered. She does wish to proceed. PLAN 1. Esophagogastroduodenoscopy with possible biopsies and possible control of gastrointestinal tract bleeding point today. 2. Colonoscopy tomorrow if no source for the melena is found at esophagogastroduodenoscopy today. AMANDA
[2017-05-27] MEDS: SUCRALFATE 1 GM TABLET PO SCH ×3 (11:29→20:17)
--- NOTE | 2017-05-27 14:43 | Progress Note ---
- Date 05/27/17 Subjective: Patient tolerated procedure. She is aware a gastric ulcer was found. She denies any stool today. No abdominal pain and no nausea. She has not had any lightheadedness since transfusion. Objective Vital signs: Temperature 96.7 F L 05/27/17 10:30 Pulse Rate 56 L 05/27/17 14:15 Respiratory Rate 16 05/27/17 14:15 Blood Pressure 135/70 05/27/17 14:15 Pulse Oximetry 95 05/27/17 14:15 Height/Weight/BMI: Height 5 ft 2 in Weight 52.9 kg Body Mass Index 20.9 - Constitutional Present: no acute distress - Routine HEENT Exam Head: Present: normocephalic, atraumatic Eye: Present: EOMI, PERRL ENT: Present: mucous membranes moist - Routine Respiratory Exam Present: CTA bilaterally - Routine Cardiovascular Exam Present: RRR - Routine Abdominal Exam Present: soft, normoactive bowel sounds, non distended, non tender - Routine Musculoskeletal Exam Musculoskeletal: Present: no clubbing or cyanosis - Routine Skin Exam Present: intact - Routine Neurological Exam Present: alert, moving all extremities - Routine Psychiatric Exam Present: normal affect Results - Labs CBC & Chem 7: 05/27/17 02:17 Assessment and Plan Assessment and Plan: Assessment UGI bleed gastric ulcer acute blood loss anemia HTN dyslipidemia angina Plan Continue Protonix drip. Carafate added. Clears today and slowly advance diet. Monitor hgb. s/p 1 unit PRBCs. ASA on hold. Coreg restarted with hold parameters. Resuming Lipitor. Encourage activity. SCDs for DVT ppx DVT Prophylaxis: SCD's GI Prophylaxis: Protonix - Physician Narrative Narrative: Date: 05/27/17 Time: 1433 Hospital Course Summary Disclaimer: The visit summary below is not to be considered part of the above Progress Note. Hospital Course: 2/2 UGI bleed acute blood loss anemia HTN dyslipidemia angina Plan Inpatient admission. Protonix drip started. Monitor hgb. With h/o angina, will transfuse [address] Davis consulted. EGD planned for AM. Hold ASA. NPO after MN. SCDs for DVT ppx 2/3 Continue Protonix drip. Carafate added. Clears today and slowly advance diet. Monitor hgb. s/p 1 unit PRBCs. ASA on hold. Coreg restarted with hold parameters. Resuming Lipitor. Encourage activity. SCDs for DVT ppx
[2017-05-27] MEDS: CARVEDILOL 3.125 MG TABLET PO SCH (17:36)
--- NOTE | 2017-05-27 19:40 | Operative Note ---
DATE OF OPERATION 05/27/2017 PREOPERATIVE DIAGNOSES 1. Recent melena. 2. Anemia due to acute gastrointestinal tract bleeding. POSTOPERATIVE DIAGNOSES 1. Recent melena. 2. Anemia due to recent acute upper gastrointestinal tract bleeding from gastric ulcer. 3. Gastric ulcers. OPERATION Esophagogastroduodenoscopy with biopsies. SURGEON Dr. Ryan CAPPS ASA Class 2E FINDINGS The esophagus appeared completely normal. The duodenum appeared completely normal. The patient does have a large antral gastric ulcer. This is at the proximal aspect of the gastric antrum. This is a large deep ulcer. Margins of the ulcer are erythematous and inflamed. Most of the base of the ulcer is covered with white fibrinous exudate. There was a pinpoint bright red spot at the center of the base the ulcer. This was thought to possibly be associated with an underlying blood vessel at the base of the ulcer at the center of the ulcer. There was no large nonvisible bleeding vessel sticking up from the base of the ulcer. There was no active bleeding from this large antral gastric ulcer at the time of the procedure today. There was no bright red blood or old blood in the stomach and duodenum at the time of the procedure today. The recent bleeding had stopped at this time. The patient did have some smaller antral gastric ulcers. One of these was closer to the pylorus. A couple more were along the incisura. The other additional ulcers were all very small ulcers. The large gastric ulcer which was seen was thought to be large enough to account for the recent melena experienced by the patient and the recent drop in hemoglobin due to bleeding from the ulcer. DESCRIPTION OF OPERATION The patient was brought to the endoscopy room. The patient was placed on a cart in the endoscopy room. The patient was placed in left lateral recumbent position on the cart. The patient was premedicated with intravenous sedation medication administered by the nurse pipe recovery specialist. The Olympus upper GI endoscope was used. The upper GI endoscope was introduced into the esophagus. The upper GI endoscope was advanced down through the esophagus and stomach and into the duodenum. The upper GI endoscope was advanced down through the duodenum beyond the duodenal bulb. The upper GI endoscope was then withdrawn out through the duodenum and through the pylorus back into the stomach. The upper GI endoscope was retroflexed and the gastroesophageal junction was viewed from below. The upper GI endoscope was straightened out. Stomach was examined further. Findings throughout all this time were as described above. The endoscopic biopsy forceps was used to obtain a sample of prepyloric antral gastric mucosa which was submitted for LADI test studies. The cold endoscopic biopsy forceps was used to obtain biopsies from all around the margins of the large gastric ulcer. These were submitted for study by the pathologist. The patient did have satisfactory hemostasis at the biopsy sites. The upper GI endoscope was then withdrawn out through the stomach and esophagus and removed from the patient. Findings at the procedure were as described above. The patient did continue to receive intravenous sedation medication administered by the nurse pipe recovery specialist throughout the operation. The patient did tolerate the operation well. AMANDA
[2017-05-27] MEDS: ATORVASTATIN 10 MG TABLET PO SCH (20:17)
[2017-05-28] MEDS: LR 1,000 ML IV SCH (01:20)
[2017-05-28] MEDS: PANTOPRAZOLE IV 80 MG in NS 250ml 250 ML IV SCH ×4 (04:55→20:02)
[2017-05-28] MEDS: SUCRALFATE 1 GM TABLET PO SCH ×4 (05:52→20:05)
[2017-05-28] MEDS: CARVEDILOL 3.125 MG TABLET PO SCH ×2 (08:59→17:17)
--- NOTE | 2017-05-28 11:25 | Progress Note ---
- Date 05/28/17 Subjective: Resting comfortably. No nausea. No abdominal pain. No stool. Tolerating liquids. No lightheadedness. Objective Vital signs: Temperature 94.6 F L 05/28/17 07:47 Pulse Rate 64 05/28/17 07:47 Respiratory Rate 16 05/28/17 07:47 Blood Pressure 140/67 H 05/28/17 07:47 Pulse Oximetry 97 05/28/17 07:47 Height/Weight/BMI: Height 5 ft 2 in Weight 52.8 kg Body Mass Index 20.9 - Constitutional Present: no acute distress - Routine HEENT Exam Eye: Present: EOMI ENT: Present: mucous membranes moist - Routine Respiratory Exam Present: CTA bilaterally. Absent: wheezes - Routine Cardiovascular Exam Present: RRR. Absent: murmur - Routine Abdominal Exam Present: soft, normoactive bowel sounds, non distended. Absent: tenderness - Routine Neurological Exam Present: alert, oriented X3, CN II-XII intact Results - Labs CBC & Chem 7: 05/28/17 07:16 Assessment and Plan Assessment and Plan: Assessment UGI bleed gastric ulcer acute blood loss anemia HTN dyslipidemia angina Plan Continue Protonix drip. Change to oral after 72 hours. Carafate. Advance diet to full liquids today. Test for H. pylori pending. Hgb stable. s/p 1 unit PRBCs. ASA on hold. Stop IVF. Coreg restarted with hold parameters. Resuming Lipitor. Encourage activity. SCDs for DVT ppx DVT Prophylaxis: SCD's GI Prophylaxis: Protonix - Physician Narrative Narrative: Date: 05/28/17 Time: 1122 Hospital Course Summary Disclaimer: The visit summary below is not to be considered part of the above Progress Note. Hospital Course: 2/2 UGI bleed acute blood loss anemia HTN dyslipidemia angina Plan Inpatient admission. Protonix drip started. Monitor hgb. With h/o angina, will transfuse [address] Davis consulted. EGD planned for AM. Hold ASA. NPO after MN. SCDs for DVT ppx 2/3 Continue Protonix drip. Carafate added. Clears today and slowly advance diet. Monitor hgb. s/p 1 unit PRBCs. ASA on hold. Coreg restarted with hold parameters. Resuming Lipitor. Encourage activity. SCDs for DVT ppx 2/4 Continue Protonix drip. Change to oral after 72 hours. Carafate. Advance diet to full liquids today. Test for H. pylori pending. Hgb stable. s/p 1 unit PRBCs. ASA on hold. Stop IVF. Coreg restarted with hold parameters. Resuming Lipitor. Encourage activity. SCDs for DVT ppx
[2017-05-28] MEDS ORDERED: LR 1,000 ML IV SCH (15:15)
[2017-05-28] MEDS: ATORVASTATIN 10 MG TABLET PO SCH (20:05)
[2017-05-29] MEDS: SUCRALFATE 1 GM TABLET PO SCH ×2 (06:11→12:34)
[2017-05-29] MEDS: PANTOPRAZOLE IV 80 MG in NS 250ml 250 ML IV SCH (07:26)
[2017-05-29 07:38] VITALS: BP 134/71; PULSE 62; RESP 18; TEMP 97; O2SAT 98
--- NOTE | 2017-05-29 08:20 | Progress Note ---
DATE 05/28/2017 HISTORY The patient denies any abdominal pain. She has been tolerating a clear liquid diet. Diet is being advanced to a full liquid diet today. The patient has been receiving Protonix intravenous infusion. She is also receiving Carafate 1 g one tablet p.o. q.i.d. one hour before meals and at bedtime. Aspirin is on hold. PHYSICAL EXAMINATION VITAL SIGNS: Temperature is 94.6 degrees Fahrenheit oral. Pulse is 64. Respiratory rate is 16. Blood pressure is 140/67. Oxygen saturation is 97% on room air. ABDOMEN: The abdomen is soft and nontender. LABORATORY DATA Hemoglobin is 10.7 and hematocrit is 32.8 this morning. IMPRESSION 1. Gastric ulcers with a large ulcer at gastric antrum. 2. Anemia due to recent acute upper gastrointestinal tract bleeding from gastric ulcer. 3. Recent melena from recent acute upper gastrointestinal tract bleeding from gastric ulcer. PATIENT EDUCATION I did review findings from the esophagogastroduodenoscopy operation yesterday with the patient today. I did talk with the patient about treatment of the gastric ulcers. I did tell the patient that my office would contact her in two months to have her come in to talk but having a followup esophagogastroduodenoscopy to make sure that the large gastric ulcer has healed in response to medical treatment. PLAN 1. Await LADI test study report from esophagogastroduodenoscopy yesterday. 2. Await pathology report on biopsies of the large gastric ulcer performed at esophagogastroduodenoscopy yesterday. 3. Continue medical treatment of the gastric ulcer. I agree with the current treatment with Protonix and Carafate. I agree with the plan to change Protonix to oral Protonix after 72 hours and to continue to gradually advance the diet of the patient prior to discharge from the hospital. 4. Continue to monitor hemoglobin and hematocrit. 5. I will plan to see the patient again in approximately two months to arrange followup esophagogastroduodenoscopy to make sure that the large gastric ulcer has healed in response to medical treatment. [facility]
[2017-05-29] MEDS: CARVEDILOL 3.125 MG TABLET PO SCH (09:14)
[2017-05-29 09:31] VITALS: BMI 21.2
--- NOTE | 2017-05-29 11:05 | Discharge Summary ---
Discharge Information Date of admission: 05/26/17 18:36 Anticipated date of discharge: 05/29/17 Attending Physician: Mark Miller IV, MD Primary care physician: Ganesh Arrieta MD Consults: Consulting Provider: Cornelio Davis - Discharge Diagnosis (1) GI bleed Status: Acute UGI bleed gastric ulcer acute blood loss anemia HTN dyslipidemia angina - Procedures Procedures: DATE OF OPERATION 05/27/2017 POSTOPERATIVE DIAGNOSES 1. Recent melena. 2. Anemia due to recent acute upper gastrointestinal tract bleeding from gastric ulcer. 3. Gastric ulcers. OPERATION Esophagogastroduodenoscopy with biopsies. SURGEON Dr. Davis FINDINGS The esophagus appeared completely normal. The duodenum appeared completely normal. The patient does have a large antral gastric ulcer. This is at the proximal aspect of the gastric antrum. This is a large deep ulcer. Margins of the ulcer are erythematous and inflamed. Most of the base of the ulcer is covered with white fibrinous exudate. There was pinpoint bright red spot at the center of the base the ulcer. This was thought to possibly be associated with an underlying blood vessel at the base of the ulcer at the center of the ulcer. There was no large nonvisible bleeding vessel sticking up from the base of the ulcer. There was no active bleeding from this large antral gastric ulcer at the time of the procedure today. There was no bright red blood or old blood in the stomach and duodenum at the time of the procedure today. The recent bleeding had stopped at this time. The patient did have some smaller antral gastric ulcers. One of these was closer to the pylorus. A couple more were along the incisura. The other additional ulcers were all very small ulcers. The large gastric ulcer which was seen was thought to be large enough to account for the recent melena experienced by the patient and the recent drop in hemoglobin due to bleeding from the ulcer. - Laboratory Labs: 05/29/17 04:10 05/29/17 04:09 - Microbiology Microbiology 05/27/17 09:54 Gastric Biopsy Helicobacter pylori Rapid Urease - Final History of Present Illness HPI: 77 yo who had a black stool Monday (05/24) afternoon and again morning. She saw Dr. Arrieta in the office. Her Hgb was 12.3. The plan was to recheck CBC today and pursue an outpatient workup as long as bleeding didn't get worse. She had another black stool today. She says she was soa and felt weak yesterday more than today. Today's Hgb was 9.8, and a direct admit was arranged. Patient recalls 4-5 days of heartburn about 2 weeks ago. She says she does not typically have heartburn. She takes 81 mg of ASA daily and does not take NSAIDs. She has had some lightheadedness in the past 2 days. Objective Vital signs: Temperature 97.0 F 05/29/17 07:37 Pulse Rate 62 05/29/17 07:37 Respiratory Rate 18 05/29/17 07:37 Blood Pressure 134/71 05/29/17 07:37 Pulse Oximetry 98 05/29/17 07:37 Height/Weight/BMI: Height 1.57 m Weight 52.6 kg Body Mass Index 21.2 - Constitutional Present: no acute distress, well nourished, well developed - Routine HEENT Exam Head: Present: normocephalic, atraumatic - Routine Respiratory Exam Present: CTA bilaterally. Absent: wheezes - Routine Cardiovascular Exam Present: RRR, murmur - Routine Abdominal Exam Present: soft, non distended, non tender - Routine Extremities Exam Present: no edema, normal capillary refill - Routine Skin Exam Present: dry, warm - Routine Neurological Exam Present: alert, oriented X3 - Routine Lymphatic Exam Lymphatic: Absent: adenopathy - Routine Psychiatric Exam Present: normal affect, cooperative Hospital Course This is a general summary of the patient's hospital course. For more details refer to the complete medical record. Hospital course: 2/ Inpatient admission. Protonix drip started. Monitor hgb. With h/o angina, will transfuse [address] Davis consulted. EGD planned for AM. Hold ASA. NPO after MN. SCDs for DVT ppx 2/ EGD by Dr. Davis today revealed large gastric ulcer. Continue Protonix drip. Carafate added. Clears today and slowly advance diet. Monitor hgb. s/p 1 unit PRBCs. ASA on hold. Coreg restarted with hold parameters. Resuming Lipitor. Encourage activity. SCDs for DVT ppx 05/28 Continue Protonix drip. Change to oral after 72 hours. Carafate. Advance diet to full liquids today. Test for H. pylori pending. Hgb stable. s/p 1 unit PRBCs. ASA on hold. Stop IVF. Coreg restarted with hold parameters. Resuming Lipitor. Encourage activity. SCDs for DVT ppx 2 Patient will be discharged home today if she tolerates regular diet. She will be switched to p.o. Protonix and continue Carafate. H. pylori was negative. She'll follow-up with Dr. Davis in a few months to have repeat EGD to confirm healing of the ulcer. May resume ASA 81mg enteric coated only. Avoid NSAIDs. Time spent with patient: discharge greater than 30 minutes Resuscitation Status: Full Code Discharge Plan - Discharge Disposition Discharge Date: 05/29/17 Disposition: Discharged Home, Self-Care *Condition: Stable Reason For Visit (Visit label in EMR): GI Bleed - Discharge Medications *Discharge Medications: New RX: Sucralfate [Carafate] 1 gm PO ACHS #120 tab RX: Aspirin *EC* [Ecotrin] 1 tab PO DAILY #30 tab RX: Pantoprazole Sodium [Protonix] 40 mg PO ACBID #60 tablet. Continue Multivitamins (Multivitamin) 1 tab PO DAILY #0 RX: Calcium Carbonate [Calcium] 600 mg PO BID #0 RX: Carvedilol 3.125 mg PO BIDWM #0 RX: Nitroglycerin 0.4 mg PO Q5MIN PRN #0 PRN Reason: CHEST PAIN RX: Denosumab [Prolia] 1 syringe IM 6 MONTHS #0 Cholecalciferol (Vitamin D3) (Vitamin D) 1,000 unit PO DAILY #0 RX: Glucosamine Sulfate Dipot Chlr [Glucosamine] 1,000 mg PO BID #0 RX: Acetaminophen/Diphenhydramine [Acetaminophen Pm Caplet] 1 tab PO HS PRN # 0 PRN Reason: INSOMNIA RX: Atorvastatin [Lipitor] 1 tab PO HS Discontinued RX: Aspirin [Aspir 81] 81 mg PO DAILY #0 - Discharge Packet/Instructions *Diet: Regular diet *Activity: As tolerated *Pain Management/Treatment: N/a *Wound Care: N/a *Expected Signs/Symptoms: Increasing strength. *Notify Physician if: You have significant blood in your stool again *During Business Hours Contact: Dr. Arrieta office *After Business Hours Contact: [facility] at [phone] and ask for the physician on-call *Pending Lab/Results: No Pending Lab - Referrals/Follow Up *Referrals/Follow Up: Ganesh Arrieta MD [Primary Care Provider] - (5 days. Schedule appt with Dr. Arrieta on Monday of this week. Needs CBC at that visit.) - Patient Handouts - Dismissal Complete Discharge Instructions are:: Complete Physician Narrative - Narrative Physician: Mark Miller MD Attestation Narrative: Date: 05/29/17 Time: 1302 I have independently evaluated and examined this patient. I reviewed the chart, the patient's history, and the ARCHITECTURAL MODELER/PA's documented findings as above. We discussed and formulated the assessment and plan as above with additions as below: Patient is doing well. She has no complaints. She had a stool yesterday that was black. No lightheadedness. NAD. CTAB. RRR. S/NT/ND +BS. No edema Hgb stable. Change to bid Protonix along with Carafate. f/u with Drs. Arrieta and Ryan
[2017-05-29] MEDS ORDERED: PANTOPRAZOLE 40 MG INJECTION IVP ONE (11:19)
[2017-05-29] MEDS ORDERED: PANTOPRAZOLE 40 MG TABLET PO SCH (17:00)
== END 2017-05-29 16:00 | disposition home or self-care (01) | DRG 378 ==
LOC: SRG 18:36
PROVIDERS: ADMIT Hospitalist; ATTEND Hospitalist
PROC: END.EGD (2017-05-27 09:15)